=== PATIENT | male | born 1975 | race Caucasian/White ===

== ENCOUNTER 2024-07-24 09:34 | Emergency (ER) | payer OTHER ==
[2024-07-24 09:43] VITALS: BP 145/85; PULSE 73; RESP 16; TEMP 98.7; BMI 34.7
[2024-07-24] MEDS ORDERED: ACETAMINOPHEN 500 MG TABLET (FP) ONE (10:37)
[2024-07-24] MEDS: ACETAMINOPHEN 500 MG TABLET (FP) PO ONE (10:39)
[2024-07-24] MEDS ORDERED: BACITRACIN ZINC 15 GM TUBE TOPICAL OINTMENT ONE ×2 (11:26→13:02)
== END 2024-07-24 13:30 | disposition home or self-care (01) ==
LOC: JERFT 09:34
DX: S61.011A Laceration without foreign body of right thumb without damage to nail, initial encounter (principal); W26.8XXA Contact with other sharp object(s), not elsewhere classified, initial encounter
CPT/HCPCS: 99283-25